=== PATIENT | female | born 1985 | race Caucasian/White ===

== ENCOUNTER 2018-04-29 15:08 | Emergency (ER) | payer BC ==
[~2018-04-29] VITALS: Ht 167.6 cm; Wt 113.0 kg
[~2018-04-29 15:08] MED LIST: DEPO-PROVER150 MG/ML IM; DOXYCYCL HYC100 MG PO; ERRIN0.35 MG PO; FERR SULFATE325 MG PO; FLUARIX QUADRIV1 INJ IM; FLUZONE SPLT1 M1 IM; HEMAX PO; LABETALOL200 MG PO; LIDOCAINE22; LORTAB 5/3255 MG PO; METHERGINE0.2 MG PO; PRENATA4 PO; PROCTOFOAM HC10 GM RE; TUBERSOL5 MG/0.1 M ID
[2018-04-29 16:03] LABS: URINE BILIRUBIN - DIPSTICK NEGATIVE (NEGATIVE); URINE BLOOD DIPSTICK NEGATIVE (NEGATIVE); URINE COLOR YELLOW; URINE GLUCOSE - DIPSTICK NEGATIVE (NEGATIVE); URINE KETONE TRACE mg/dL (NEGATIVE); URINE LEUK ESTERASE NEGATIVE (NEGATIVE); URINE NITRITE - DIPSTICK NEGATIVE (Negative); URINE PROTEIN - DIPSTICK NEGATIVE (NEG-TRACE); URINE SPECIFIC GRAVITY >=1.030; URINE UROBILINOGEN - DIPSTICK 0.2 E.U./dL (0.2)
[2018-04-29 16:05] LABS: URINE CLARITY CLEAR
[2018-04-29 16:06] LABS: IMMATURE GRANULOCYTES 0.2 % (0.0-5.0); MEAN CORPUSCULAR HGB 30.2 pG CALC (26.0-32.0); MEAN CORPUSCULAR HGB CONC 33.2 g/L CALC (32.0-36.0); NEUT# 5.1 thou/uL (2.00-7.15); RED BLOOD COUNT 4.11 mill/uL (4.20-5.60); RED CELL DISTRI WIDTH 13.2 % (11.5-15.5)
[2018-04-29 16:13] LABS: HEMATOCRIT 37.4 % (37.0-47.0); HEMOGLOBIN 12.4 g/dl (12.0-16.0)
[2018-04-29 16:22] LABS: ALBUMIN 4.2 g/dL (3.2-5.0); ALKALINE PHOSPHATASE 111 u/l (38-126); AMYLASE 57 u/l (30-110); ANION GAP 13 (6-22 (CALC)); BILIRUBIN, TOTAL 0.3 mg/dL (0.0-1.4); BUN 16 mg/dL (7-17); BUN/CREATININE RATIO 17 (12-20 (CALC)); CARBON DIOXIDE 26 mmol/l (22-30); CHLORIDE 108 mmol/l (95-108); CREATININE 0.9 mg/dL (0.5-1.0); GFR > 60 ML/MIN (>=60 (CALC)); GFR FOR AFR.AMER. > 60 ML/MIN (>=60 (CALC)); LIPASE 53 u/l (23-300); POTASSIUM 3.9 mmol/l (3.5-5.1); SGOT/AST 19 u/l (14-36); SODIUM 143 mmol/l (137-146); TOTAL PROTEIN 7.9 g/dL (6.3-8.2)
[2018-04-29] MEDS ORDERED: PREVACID30 M3 PO (16:35)
[2018-04-29] MEDS ORDERED: ZOFRAN ODT4 MG PO (16:35)
[2018-04-29 16:50] VITALS: BP 157/96
== END 2018-04-29 17:00 | disposition home or self-care (01) | DRG 392 ==
LOC: ED 15:08
PROVIDERS: Emergency Medicine
DX: R10.13 Epigastric pain (principal)
CPT/HCPCS: S0164

== ENCOUNTER 2018-09-20 18:16 | Emergency (ER) | payer BC ==
[~2018-09-20] VITALS: Ht 167.6 cm; Wt 104.5 kg
[~2018-09-20 18:16] MED LIST changes: +PREVACID30 M3 PO; +ZOFRAN ODT4 MG PO
[2018-09-20] MEDS ORDERED: SB CLOTRIMAZ1 % EX (18:36)
[2018-09-20 18:57] VITALS: BP 162/88
== END 2018-09-20 18:57 | disposition home or self-care (01) | DRG 607 ==
LOC: ED 18:16
DX: B35.4 Tinea corporis (principal)

== ENCOUNTER 2018-10-17 01:27 | Emergency (ER) | payer BC ==
[~2018-10-17] VITALS: Ht 167.6 cm; Wt 113.6 kg
[~2018-10-17 01:27] MED LIST changes: +SB CLOTRIMAZ1 % EX
[2018-10-17 02:24] VITALS: BP 160/91
== END 2018-10-17 02:24 | disposition home or self-care (01) | DRG 607 ==
LOC: ED 01:27
DX: R21 Rash and other nonspecific skin eruption (principal)

== ENCOUNTER 2019-03-13 07:31 | Day surgery (SDC) | payer BC ==
[~2019-03-13 07:31] MED LIST changes: +B121000 MCG; +LOSARTAN POTASS25 MG PO
[2019-03-13 10:21] VITALS: BP 115/63
== END 2019-03-13 10:43 | disposition home or self-care (01) | DRG 951 ==
LOC: ENDO 07:31
PROVIDERS: ATTEND Surgery
PROC: 0DJD8ZZ Inspection of Lower Intestinal Tract, Via Natural or Artificial Opening Endoscopic (ICD-10-PCS; principal; 2019-03-13)
DX: Z12.11 Encounter for screening for malignant neoplasm of colon (principal); K64.4 Residual hemorrhoidal skin tags; I10 Essential (primary) hypertension; Z80.0 Family history of malignant neoplasm of digestive organs

== ENCOUNTER 2023-12-09 08:36 | Emergency (ER) | payer OTHER ==
[~2023-12-09] VITALS: Ht 167.6 cm; Wt 94.0 kg
[2023-12-09 08:43] VITALS: BP 152/88
[2023-12-09 09:00] VITALS: BP 133/73
[2023-12-09 09:14] LABS: BASO% 0.3 % (0-3); EOS% 0.6 % (0-8); HEMATOCRIT 37.9 % (37.0-47.0); HEMOGLOBIN 12.5 g/dl (12.0-16.0); IMMATURE GRANULOCYTES 0.1 % (0.0-5.0); LYMPH% 21.1 % (15-41); MEAN CELL VOLUME 95.2 fL CALC (80.0-100.0); MEAN CORPUSCULAR HGB 31.4 pG CALC (26.0-32.0); MONO% 5.1 % (2-13); NEUT# 4.95 thou/uL (2.00-7.15); NEUT% 72.8 % (42-76); RED BLOOD COUNT 3.98 mill/uL (4.20-5.60); RED CELL DISTRI WIDTH 13.1 % (11.5-15.5)
[2023-12-09 09:26] LABS: URINE BILIRUBIN - DIPSTICK Negative (NEGATIVE); URINE BLOOD DIPSTICK Small (NEGATIVE); URINE GLUCOSE - DIPSTICK Negative (NEGATIVE); URINE KETONE Negative (NEGATIVE); URINE LEUK ESTERASE Negative (NEGATIVE); URINE NITRITE - DIPSTICK Negative (Negative); URINE PH 5.5 (4.5-8.0); URINE PROTEIN - DIPSTICK Negative (NEG-TRACE); URINE SPECIFIC GRAVITY >=1.030; URINE UROBILINOGEN - DIPSTICK 0.2 E.U./dL (0.2)
[2023-12-09 09:29] LABS: ALBUMIN 4.2 g/dL (3.2-5.0); CREATININE 1.1 mg/dL (0.5-1.0); POTASSIUM 3.7 mmol/l (3.5-5.1); TOTAL PROTEIN 7.9 g/dL (6.3-8.2)
[2023-12-09 09:31] LABS: URINE COLOR Yellow
[2023-12-09 09:33] LABS: BILIRUBIN, TOTAL 0.7 mg/dL (0.02-1.3)
[2023-12-09] MEDS ORDERED: TORADOL PO (12:52)
[2023-12-09] MEDS ORDERED: OMNICEF300 MG PO (12:52)
[2023-12-09 13:02] VITALS: BP 148/82
== END 2023-12-09 13:00 | disposition home or self-care (01) ==
LOC: ED 08:36
PROVIDERS: Family Medicine
DX: N13.30 Unspecified hydronephrosis (principal); R31.9 Hematuria, unspecified